=== PATIENT | male | born 1960 | race Caucasian/White ===

== ENCOUNTER 2022-01-09 14:27 | Emergency (ER) | payer SELFPAY ==
[~2022-01-09] VITALS: Ht 170.2 cm; Wt 86.2 kg
[2022-01-09 14:33] VITALS: BP 149/96
--- NOTE | 2022-01-09 15:35 | NUR ---
Dr. Bradley is evaluating pt at bedside
--- NOTE | 2022-01-09 16:01 | NUR ---
Lab at bedside
--- NOTE | 2022-01-09 16:03 | NUR ---
Blood work and UA handed to CPT Bree at ER bedside
--- NOTE | 2022-01-09 16:05 | NUR ---
61/M BIB SELF WITH C/O LOWER ABDOMINAL PAIN RADIATING TO RIGHT SIDE SINCE LAST NIGHT, REPORTS INTERMITTENT HEADACHE. PATIENT STATES 9/10, BURNING/CONSTANT, RADIATING TO RLQ. DENIES N/V/D, URINARY SYMPTOMS, CONSTIPATION, CHEST PAIN, OTHER COMPLAINTS. PT PLACED INTO GOWN. ABD SOFT/ROUND/TENDER. BED LOCKED IN LOWEST POSITION, SIDE RAILS X 1, CALL LIGHT IN REACH. MEDHX: DENIES ALLERGIES: NKA
[2022-01-09 16:13] LABS: BASOPHILS # (AUTO) 0.1 K/uL (0.00-0.22); BASOPHILS % (AUTO) 0.7 % (0.0-2.0); EOSINOPHILS # (AUTO) 0.1 K/uL (0-0.4); EOSINOPHILS % (AUTO) 1.1 % (0.0-4.0); HEMATOCRIT 46.4 % (36-52); HEMOGLOBIN 15.5 g/dL (12.0-18.0); LYMPHOCYTES # (AUTO) 1.1 K/uL (2.0-11.5); LYMPHOCYTES % (AUTO) 11.2 % (20.5-51.1); MEAN CORPUSCULAR HEMOGLOBIN 31 pg (27-31); MEAN CORPUSCULAR HGB CONC 34 g/dL (33-37); MEAN CORPUSCULAR VOLUME 93.4 fL (80-94); MONOCYTES # (AUTO) 0.6 K/uL (0.8-1.0); MONOCYTES % (AUTO) 6.4 % (1.7-9.3); NEUTROPHILS # (AUTO) 7.9 K/uL (1.8-7.7); NEUTROPHILS % (AUTO) 80.6 % (42.2-75.2); PLATELET COUNT (AUTO) 207 K/uL (140-450); RED BLOOD CELL COUNT(AUTO) 4.96 MIL/uL (4.20-6.10); RED CELL DISTRIBUTION WIDTH 13.5 % (11.6-13.7); WHITE BLOOD COUNT (AUTO) 9.8 K/uL (4.8-10.8)
[2022-01-09 16:34] LABS: APPEARANCE,URINE CLEAR (CLEAR); BILIRUBIN,URINE NEGATIVE (NEGATIVE); BLOOD, URINE NEGATIVE (NEGATIVE); COLOR,URINE YELLOW (YELLOW); LEUKOCYTE ESTERASE ,URINE NEGATIVE (NEGATIVE); NITRITE, URINE NEGATIVE (NEGATIVE); PH,URINE 5.5 (5.0-9.0); UGLUCOSE NEGATIVE (NEGATIVE)
[2022-01-09 16:41] LABS: ALBUMIN 3.9 g/dL (3.4-5.0); ANION GAP 11.7 (8-16); CARBON DIOXIDE 28.3 mmol/L (21-32); CREATININE 0.9 mg/dL (0.6-1.3); TOTAL BILIRUBIN 1.1 mg/dL (0.0-1.0)
[2022-01-09 17:30] VITALS: BP 143/89
[2022-01-09] MEDS ORDERED: METR-520 PO (17:47)
[2022-01-09] MEDS ORDERED: CIPR500T4 PO (17:47)
--- NOTE | 2022-01-09 18:01 | NUR ---
IV removed, catheter intact and site benign. Applied folded 2x2 gauze and tape to stop bleeding.
--- NOTE | 2022-01-09 18:06 | NUR ---
Patient discharged with v/s stable. Written and verbal after care instructions given and explained. Patient alert, oriented and verbalized understanding of instructions. Ambulatory with steady gait. All questions addressed prior to discharge. ID band removed. Patient advised to follow up with PMD. Rx of Ciprofloxacin, Flagyl given. Patient educated on indication of medication including possible reaction and side effects. Opportunity to ask questions provided and answered.
== END 2022-01-09 18:06 | disposition home or self-care (01) ==
LOC: MED 14:27
DX: K57.90 Diverticulosis of intestine, part unspecified, without perforation or abscess without bleeding (principal); R51.9 Headache, unspecified
CPT/HCPCS: 36415; 74177; 80053; 81003; 85025; 99285; Q9967; 99283